=== PATIENT | male | born 1980 | race Caucasian/White ===

== ENCOUNTER 2017-01-18 21:51 | Emergency (ER) | payer OTHER ==
[~2017-01-18] VITALS: Ht 172.7 cm; Wt 87.3 kg
[2017-01-18 22:12] LABS: HEMATOCRIT 42.8 % (38.0-50.0); MCH 30.2 PG (29.0-34.0); MCHC 34.8 G/DL (30.0-36.0); MCV 86.6 FL (86-99); MEAN PLAT.VOLUME 9.5 uM^3 (9.0-12.4); PLATELET COUNT 263 K/uL (156-360); RBC DIS.WIDTH-CV 11.9 % (11.8-14.6); RED BLOOD COUNT 4.94 M/uL (4.00-5.50); WHITE BLOOD COUNT 11.1 K/uL (4.1-10.2)
[2017-01-18 22:22] LABS: CHLORIDE 106 mEq/L (99-109); POTASSIUM 3.8 mEq/L (3.7-5.4); SODIUM 139 mEq/L (136-147)
[2017-01-18 22:25] LABS: GLUCOSE 84 mg/dL (70-99)
[2017-01-18 22:26] LABS: ANION GAP 10 MEQ/L (2-14)
[2017-01-18 22:27] LABS: TOTAL BILIRUBIN 0.5 mg/dL (0.0-1.0)
[2017-01-18 22:28] LABS: ALKALINE PHOSPHATASE 59 IU/L (3-129)
[2017-01-18 22:29] LABS: UREA NITROGEN (BUN) 25 mg/dL (9-23)
[2017-01-18 22:33] LABS: GFR ESTIMATE (CALCULATED) 56 mL/min/
[2017-01-19 00:51] LABS: ADD MIUA? NO; BILIRUBIN NEGATIVE; BLOOD NEGATIVE; COLOR YELLOW ((YELLOW)); GLUCOSE (STRIP) NEGATIVE; KETONES NEGATIVE; LEUKOCYTES NEGATIVE; NITRITE NEGATIVE; PROTEIN (STRIP) NEGATIVE; UCUL ADDED? NO; UROBILINOGEN 0.2 MG/DL (0.2-1.0)
[2017-01-19] MEDS ORDERED: MOBIC15 MG PO (01:36)
[2017-01-19 01:54] VITALS: BP 135/85
== END 2017-01-19 01:55 | disposition home or self-care (01) ==
LOC: EME 21:51
DX: K57.30 Diverticulosis of large intestine without perforation or abscess without bleeding (principal); R10.31 Right lower quadrant pain
CPT/HCPCS: 74177; 80053; 81003; 83605; 85027; 99281; 99284; J1885; J7030